=== PATIENT | female | born 1985 | race Caucasian/White ===

== ENCOUNTER 2017-07-21 10:33 | Outpatient (CLI) | payer OTHER ==
[~2017-07-21 10:33] MED LIST: FERROUS SU325 ( 65 ) PO; PRENATE ADVANCE PO
== END 2017-07-21 12:04 | disposition home or self-care (01) ==
LOC: NST 10:33
DX: Z34.83 Encounter for supervision of other normal pregnancy, third trimester (principal)

== ENCOUNTER 2017-07-27 07:28 | Inpatient (IN) | payer OTHER ==
[~2017-07-27] VITALS: Ht 175.3 cm; Wt 73.5 kg
== END 2017-07-29 11:20 | disposition home or self-care (01) | DRG 767 ==
LOC: OB/GYN 07:28 → LDR 07:28 → O/R 13:22 → OB/GYN 16:23
PROVIDERS: Obstetrics & Gynecology
PROC: 0UT70ZZ Resection of Bilateral Fallopian Tubes, Open Approach (ICD-10-PCS; 2017-07-27)
PROC: 4A1HXCZ Monitoring of Products of Conception, Cardiac Rate, External Approach (ICD-10-PCS; 2017-07-27)
PROC: 10E0XZZ Delivery of Products of Conception, External Approach (ICD-10-PCS; principal; 2017-07-27 13:00)
DX: O48.0 Post-term pregnancy (principal); Z37.0 Single live birth; Z30.2 Encounter for sterilization; Z64.1 Problems related to multiparity